=== PATIENT | female | born 1990 | race Caucasian/White ===

== ENCOUNTER 2024-12-31 22:43 | Emergency (ER) | payer BC ==
[~2024-12-31] VITALS: Ht 154.9 cm; Wt 81.6 kg
[2024-12-31 23:36] VITALS: BP 130/81; TEMP 97.9; O2SAT 99
== END 2025-01-01 00:23 | disposition home or self-care (01) ==
LOC: ER 23:04
DX: S50.02XA Contusion of left elbow, initial encounter (principal); W01.0XXA Fall on same level from slipping, tripping and stumbling without subsequent striking against object, initial encounter; Y93.89 Activity, other specified; Y92.89 Other specified places as the place of occurrence of the external cause; Y99.8 Other external cause status
CPT/HCPCS: 73080-TC